=== PATIENT | female | born 1975 ===

== ENCOUNTER 2018-10-24 07:45 | Inpatient (IN) | payer OTHER ==
[~2018-10-24] VITALS: Ht 162.6 cm; Wt 72.6 kg
[~2018-10-24 07:45] MED LIST: HUMIRA20 MG/0.4 SQ; HUMIRA40 MG/0.1 SQ
[2018-10-24] MEDS ORDERED: ULTRAM50 MG PO (10:40)
[2018-10-24] MEDS ORDERED: DICLOFENAC SODI75 MG PO (10:40)
[2018-10-24] MEDS ORDERED: NEURONTIN600 MG PO (10:40)
[2018-11-01] MEDS ORDERED: ELIQUIS2.5 MG PO (11:10)
[2018-11-01] MEDS ORDERED: ULTRACET PO (11:10)
[2018-11-01] MEDS ORDERED: CEFADROXIL500 MG PO (11:10)
== END 2018-11-01 13:03 | disposition home or self-care (01) | DRG 470 ==
LOC: SURH 10-30 07:00 → O/R 10-30 08:08 → SURH 10-30 14:54
PROVIDERS: ADMIT Orthopaedic Surgery
PROC: 0SRB0J9 Replacement of Left Hip Joint with Synthetic Substitute, Cemented, Open Approach (ICD-10-PCS; principal; 2018-10-30 07:00)
PROC: 30233N1 Transfusion of Nonautologous Red Blood Cells into Peripheral Vein, Percutaneous Approach (ICD-10-PCS; 2018-10-31)
DX: M16.12 Unilateral primary osteoarthritis, left hip (principal); D62 Acute posthemorrhagic anemia; L40.8 Other psoriasis; Z98.84 Bariatric surgery status; D51.3 Other dietary vitamin B12 deficiency anemia; D50.8 Other iron deficiency anemias

== ENCOUNTER 2018-10-29 17:30 | Outpatient (CLI) | payer OTHER ==
[~2018-10-29 17:30] MED LIST changes: +DICLOFENAC SODI75 MG PO; +NEURONTIN600 MG PO; +ULTRAM50 MG PO
== END 2018-10-29 17:40 | disposition home or self-care (01) ==
LOC: LAB 17:30
DX: D50.8 Other iron deficiency anemias (principal); D51.3 Other dietary vitamin B12 deficiency anemia; K91.2 Postsurgical malabsorption, not elsewhere classified; L41.3 Small plaque parapsoriasis; M16.11 Unilateral primary osteoarthritis, right hip